=== PATIENT | female | born 1945 | race Caucasian/White ===

== ENCOUNTER → 2017-08-25 | Outpatient (CLI) | payer MEDICARE, OTHER | LOC: CVU 12:53 | PROVIDERS: ATTEND Internal Medicine Cardiovascular Disease | DX: Z02.9 Encounter for administrative examinations, unspecified (principal) ==

== ENCOUNTER → 2017-09-07 | Outpatient (CLI) | payer OTHER | END | disposition home or self-care (01) | LOC: CVU 09:21 | PROVIDERS: ATTEND Internal Medicine Cardiovascular Disease | DX: I35.2 Nonrheumatic aortic (valve) stenosis with insufficiency (principal) | CPT/HCPCS: 93306 ==

== ENCOUNTER 2017-10-22 12:10 | Day surgery (SDC) | payer OTHER ==
[~2017-10-22] VITALS: Ht 165.1 cm; Wt 63.2 kg
[2017-10-22] MEDS ORDERED: MAGN400T36 PO (13:00)
[2017-10-22] MEDS ORDERED: CALC-112 PO (13:00)
[2017-10-22 13:15] VITALS: BP 137/84
[2017-10-22 13:27] LABS: BASOPHILS # (AUTO) 0.01 x10^3/uL (0-0.1); BASOPHILS % (AUTO) 0 % (0-1); EOSINOPHILS % (AUTO) 0 % (1-7); LYMPHOCYTES # (AUTO) 0.62 x10^3/uL (1-3.4); LYMPHOCYTES % (AUTO) 11 % (22-44); MD NO; MEAN CORPUSCULAR HEMOGLOBIN 29.5 pg (27.0-34.8); MEAN CORPUSCULAR HGB CONC 32.8 g/dL (32.4-35.8); MEAN CORPUSCULAR VOLUME 89.7 fL (80-100); MEAN PLATELET VOLUME 7.4 fL (7.4-10.4); MONOCYTES # (AUTO) 0.05 x10^3/uL (0.2-0.8); MONOCYTES % (AUTO) 1 % (2-9); NEUTROPHILS # (AUTO) 4.96 x10^3/uL (1.8-6.8); NEUTROPHILS % (AUTO) 88 % (42-75); PLATELET COUNT 365 x10^3/uL (130-400); RED BLOOD COUNT 4.97 x10^6/uL (3.82-5.3); RED CELL DISTRIBUTION WIDTH 14.5 % (9.6-15.2)
[2017-10-22] MEDS ORDERED: ZOLPIDEM 5MG TABLET PO PRN (13:30)
[2017-10-22] MEDS ORDERED: ONDANSETRON 2MG/ML, 2ML IVPush PRN (13:30)
[2017-10-22] MEDS ORDERED: ACETAMINOPHEN 325 MG TABLET PO PRN (13:30)
[2017-10-22 13:45] LABS: ANION GAP 9 mmol/L (5-15); CALCIUM 9.4 mg/dL (8.5-10.1); CHLORIDE 107 mmol/L (98-107); CREATININE 1.13 mg/dL (0.55-1.02)
[2017-10-22] MEDS ORDERED: VERAPAMIL 2.5 MG/ML, 2ML ONE (14:19)
[2017-10-22] MEDS ORDERED: MIDAZOLAM 1 MG/ML, 5ML ONE (14:19)
[2017-10-22] MEDS ORDERED: HEPARIN 1,000 UNITS/ML, 10ML ONE (14:19)
[2017-10-22] MEDS ORDERED: FENTANYL PF 100 MCG/2ML ONE (14:19)
[2017-10-22] MEDS ORDERED: BIVALIRUDIN 250 MG ONE (14:19)
[2017-10-22] MEDS ORDERED: LIDOCAINE 2%, 2ML ONE (14:20)
== END 2017-10-22 19:30 | disposition home or self-care (01) ==
LOC: CACL 12:10 → 5SO 16:46 → CACL 19:30
PROVIDERS: ATTEND Internal Medicine Cardiovascular Disease
DX: I35.0 Nonrheumatic aortic (valve) stenosis (principal); E78.5 Hyperlipidemia, unspecified; Z88.1 Allergy status to other antibiotic agents; Z88.5 Allergy status to narcotic agent; Z88.8 Allergy status to other drugs, medicaments and biological substances; Z91.030 Bee allergy status
CPT/HCPCS: 36415; 80048; 85025; 93454; 99156; C1894; J1644; J2250; J3010; J3490; Q9967; J0583

== ENCOUNTER 2017-11-03 04:39 | Inpatient (IN) | payer OTHER ==
[2017-11-02 15:15] LABS: MICROSCOPIC INDICATED
[2017-11-02 15:23] LABS: BASOPHILS # (AUTO) 0.06 x10^3/uL (0-0.1); BASOPHILS % (AUTO) 1 % (0-1); EOSINOPHILS # (AUTO) 0.71 x10^3/uL (0-0.4); EOSINOPHILS % (AUTO) 8 % (1-7); LYMPHOCYTES # (AUTO) 2.11 x10^3/uL (1-3.4); LYMPHOCYTES % (AUTO) 23 % (22-44); MD NO; MEAN CORPUSCULAR HEMOGLOBIN 29.9 pg (27.0-34.8); MEAN CORPUSCULAR HGB CONC 33.3 g/dL (32.4-35.8); MEAN CORPUSCULAR VOLUME 89.7 fL (80-100); MEAN PLATELET VOLUME 7.3 fL (7.4-10.4); MONOCYTES # (AUTO) 0.45 x10^3/uL (0.2-0.8); MONOCYTES % (AUTO) 5 % (2-9); NEUTROPHILS # (AUTO) 5.93 x10^3/uL (1.8-6.8); NEUTROPHILS % (AUTO) 64 % (42-75); PLATELET COUNT 316 x10^3/uL (130-400); RED BLOOD COUNT 4.75 x10^6/uL (3.82-5.3); RED CELL DISTRIBUTION WIDTH 14.6 % (9.6-15.2)
[2017-11-02 15:30] LABS: ALANINE AMINOTRANSFERASE 32 U/L (12-78); ALBUMIN 3.8 g/dL (3.4-5.0); ANION GAP 7 mmol/L (5-15); CALCIUM 8.9 mg/dL (8.5-10.1); CHLORIDE 104 mmol/L (98-107); CREATININE 1.04 mg/dL (0.55-1.02)
[2017-11-02 15:32] LABS: ALKALINE PHOSPHATASE 74 U/L (45-117); BILIRUBIN,TOTAL 0.9 mg/dL (0.2-1.0); TOTAL PROTEIN 7.6 g/dL (6.4-8.2)
[2017-11-02 15:42] LABS: INTERNATIONAL NORMALIZED RATIO 0.94 (0.93-1.1); PROTHROMBIN TIME 9.8 Seconds (9.6-11.5)
[2017-11-02 16:09] LABS: HEMOGLOBIN A1C 5.3 % (4.2-6.3)
[~2017-11-03] VITALS: Ht 165.1 cm; Wt 70.5 kg
[~2017-11-03 04:39] MED LIST: ALPR0.25 PO; CALC-112 PO; CALCIUM PO; DIPH25CA61 PO; MAGN400T36 PO; MAGNESIUM PO; VITA1TAB19 PO
[2017-11-03] MEDS ORDERED: ALBUMIN HUMAN 5% 500 ML IV PRN (05:00)
[2017-11-03 05:06] VITALS: BP_SYST 130; BP_SYST 133; BP_DIAS 83; BP_DIAS 88
[2017-11-03] MEDS: MUPIROCIN OINT 2%, 22GM TP SCH ×2 (05:49→21:00)
[2017-11-03] MEDS: SODIUM CHLORIDE FLUSH 10ML SYR IVF SCH ×3 (05:54→21:37)
[2017-11-03] MEDS ORDERED: INSULIN LISPRO 100 UNITS/ML, PEN SQ-INSULIN SCH (06:00)
[2017-11-03] MEDS ORDERED: CHLORHEXIDINE 15 ML BOTTLE MM SCH (06:00)
[2017-11-03] MEDS ORDERED: FENTANYL PF 250 MCG/5ML ONE ×4 (06:17→06:18)
[2017-11-03] MEDS ORDERED: MIDAZOLAM 10MG/2 ML ONE (06:17)
[2017-11-03] MEDS ORDERED: ROCURONIUM 10MG/ML,5ML ONE ×3 (06:18)
[2017-11-03] MEDS ORDERED: CALCIUM CHLORIDE 10%, 10ML SYR ONE (06:18)
[2017-11-03] MEDS ORDERED: EPINEPHRINE 1 MG/ML, 1ML ONE (06:18)
[2017-11-03] MEDS ORDERED: AMINOCAPROIC ACID 250 MG/ML, 20ML ONE ×2 (06:18)
[2017-11-03] MEDS ORDERED: PROPOFOL 10 MG/ML, 20ML ONE (06:18)
[2017-11-03] MEDS ORDERED: methylPREDNISolone SOD SUCC 125 MG/2 ML ONE (07:10)
[2017-11-03] MEDS ORDERED: MANNITOL PMX 20% 500 ML IVPB PRN (07:30)
[2017-11-03] MEDS ORDERED: PHENYLEPHRINE 10 MG in SODIUM CHLORIDE 0.9% 249 ML IV PRN ×2 (07:30→10:32)
[2017-11-03] MEDS ORDERED: DEXMEDETOMIDINE 200 MCG in SODIUM CHLORIDE 0.9% 48 ML IV SCH (07:30)
[2017-11-03] MEDS ORDERED: REGULAR INSULIN 62.5 UNITS in SODIUM CHLORIDE 0.9% 249.375 ML IV PRN ×2 (07:30→10:32)
[2017-11-03] MEDS ORDERED: POTASSIUM CHLORIDE 80 MEQ, SODIUM BICARBONATE 8.4% 10 MEQ, MAGNESIUM SULFATE 0.5 GM, LI... IV PRN (07:30)
[2017-11-03] MEDS ORDERED: EPINEPHRINE 2 MG in SODIUM CHLORIDE 0.9% 248 ML IV SCH (07:30)
[2017-11-03] MEDS ORDERED: CEFUROXIME 1.5 GM in SODIUM CHLORIDE 0.9% 50 ML IVPB PRN (07:30)
[2017-11-03] MEDS ORDERED: VANCOMYCIN 1,000 MG in SODIUM CHLORIDE 0.9% 100 ML IV PRN (07:30)
[2017-11-03] MEDS: DOCUSATE 100 MG CAPSULE PO SCH ×2 (09:00→21:00)
[2017-11-03] MEDS ORDERED: DEXMEDETOMIDINE 200 MCG in SODIUM CHLORIDE 0.9% 48 ML IV PRN (10:32)
[2017-11-03] MEDS ORDERED: VASOPRESSIN 50 UNIT in SODIUM CHLORIDE 0.9% 250 ML IV PRN (10:32)
[2017-11-03] MEDS ORDERED: SODIUM CHLORIDE 0.9% 1,000 ML IV PRN (10:32)
[2017-11-03] MEDS ORDERED: NITROGLYCERIN/D5W PMX 250 ML IV PRN (10:32)
[2017-11-03] MEDS ORDERED: DOBUTAMINE 250 MG in SODIUM CHLORIDE 0.9% 230 ML IV PRN (10:32)
[2017-11-03] MEDS ORDERED: HEPARIN 1,000 UNITS/ML, 30ML ONE (10:34)
[2017-11-03] MEDS ORDERED: SODIUM BICARBONATE 1 MEQ/ML, 50ML VIAL ONE (10:34)
[2017-11-03] MEDS ORDERED: LIDOCAINE 2% 100MG/5ML SYRINGE ONE (10:34)
[2017-11-03] MEDS ORDERED: ALBUMIN HUMAN 25% 50 ML ONE (10:35)
[2017-11-03] MEDS ORDERED: morphine SULFATE 10 MG/ML, 1ML IVPush PRN (11:00)
[2017-11-03] MEDS ORDERED: ACETAMINOPHEN 650 MG SUPP PR PRN (11:00)
[2017-11-03] MEDS ORDERED: HYDROcodone/APAP 10/325 MG TABLET PO PRN (11:00)
[2017-11-03] MEDS ORDERED: EPINEPHRINE 2 MG in SODIUM CHLORIDE 0.9% 248 ML IV PRN (11:00)
[2017-11-03] MEDS ORDERED: BISACODYL 10 MG SUPP PR PRN (11:00)
[2017-11-03] MEDS ORDERED: DEXTROSE 4 GM TAB.CHEW PO PRN (11:00)
[2017-11-03] MEDS ORDERED: MIDAZOLAM 1 MG/ML, 5ML IVPush PRN (11:00)
[2017-11-03] MEDS ORDERED: ACETAMINOPHEN 325 MG TABLET PO PRN (11:00)
[2017-11-03] MEDS ORDERED: CEFUROXIME 1.5 GM in SODIUM CHLORIDE 0.9% 50 ML IVPB SCH (11:00)
[2017-11-03] MEDS ORDERED: DEXTROSE 50%, 50ML SYRINGE IVPush PRN (11:00)
[2017-11-03] MEDS ORDERED: SODIUM BICARB 8.4%, 50ML SYRINGE IV PRN (11:00)
[2017-11-03] MEDS: INSULIN LISPRO 100 UNITS/ML, PEN SQ-INSULIN SCH ×3 (11:00→21:00)
[2017-11-03] MEDS ORDERED: INSULIN REGULAR 100 UNITS/ML, 3ML VIAL IVPush PRN (11:00)
[2017-11-03] MEDS ORDERED: ONDANSETRON 2MG/ML, 2ML IVPush PRN (11:00)
[2017-11-03] MEDS ORDERED: BISACODYL 5 MG EC TABLET PO PRN (11:00)
[2017-11-03] MEDS: KSCALE TO 4.5 IV SCH ×3 (11:00→23:00)
[2017-11-03] MEDS ORDERED: GLUCAGON 1 MG IM PRN (11:00)
[2017-11-03 11:03] LABS: GLUCOSE BY BLOOD GAS ANALYZER 190 mg/dL (70-110); HEMOGLOBIN BY BLOOD GAS ANALYZ 10.9 g/dL (14.0-18.0); POTASSIUM BY BLOOD GAS ANALYZR 2.7 mmol/L (3.6-5.5)
[2017-11-03 11:29] LABS: INTERNATIONAL NORMALIZED RATIO 1.42 (0.93-1.1); PROTHROMBIN TIME 14.7 Seconds (9.6-11.5)
[2017-11-03] MEDS ORDERED: POTASSIUM CHLORIDE 40 MEQ in SODIUM CHLORIDE 0.9% 100 ML IV ONE (12:00)
[2017-11-03 13:24] VITALS: BP 124/40
[2017-11-03 13:58] VITALS: BP 116/38
[2017-11-03] MEDS ORDERED: CALCIUM CHLORIDE 13.6 MEQ in SODIUM CHLORIDE 0.9% 100 ML IV ONE (14:00)
[2017-11-03 14:20] LABS: INTERNATIONAL NORMALIZED RATIO 1.25 (0.93-1.1); PROTHROMBIN TIME 12.9 Seconds (9.6-11.5)
[2017-11-03 14:42] VITALS: BP 119/35
[2017-11-03] MEDS ORDERED: NOVOSEVEN RT (FACTOR VIIA) RECOMB 1,000 MCG IVPush ONE (15:00)
[2017-11-03] MEDS: PROCHLORPERAZINE 5 MG/ML, 2ML IVPush PRN ×2 (15:34→22:45)
[2017-11-03] MEDS ORDERED: ALBUMIN HUMAN 5% 500 ML IV ONE (16:00)
[2017-11-03] MEDS: MAGNESIUM SULFATE 1 GM in SODIUM CHLORIDE 0.9% 50 ML IVPB SCH (16:07)
[2017-11-03 16:10] VITALS: BP 106/27
[2017-11-03] MEDS: HYDROcodone/APAP 5/325 TABLET PO PRN (17:54)
[2017-11-03] MEDS: VANCOMYCIN 900 MG in SODIUM CHLORIDE 0.9% 100 ML IVPB SCH (17:55)
[2017-11-03] MEDS: ONDANSETRON ODT 4 MG PO PRN (18:22)
[2017-11-03] MEDS ORDERED: MORPHINE SULFATE 4 MG/ML, 1ML ONE (19:32)
[2017-11-03] MEDS: LACTATED RINGERS 1,000 ML IV PRN (19:56)
[2017-11-03] MEDS: CEFAZOLIN PMX 1GM/50ML 50 ML IVPB SCH (19:56)
[2017-11-03] MEDS ORDERED: PROMETHAZINE 25 MG/ML, 1ML IM ONE (20:00)
[2017-11-03] MEDS ORDERED: DIPHENHYDRAMINE 50 MG/ML, 1ML IVPush ONE (20:00)
[2017-11-03] MEDS: SCOPOLAMINE PATCH, 1.5MG PATCH.TD72 TD SCH (20:08)
[2017-11-03] MEDS: MUPIROCIN OINT 2%, 22GM NAS SCH (21:36)
[2017-11-03] MEDS: OXYcodone IR 5MG TABLET PO PRN (21:36)
[2017-11-04] MEDS: OXYcodone IR 5MG TABLET PO PRN ×7 (01:45→20:53)
[2017-11-04] MEDS: LACTATED RINGERS 1,000 ML IV PRN (02:32)
[2017-11-04] MEDS: CEFAZOLIN PMX 1GM/50ML 50 ML IVPB SCH ×2 (03:30→11:27)
[2017-11-04 03:58] LABS: MEAN CORPUSCULAR HEMOGLOBIN 30.6 pg (27.0-34.8); MEAN CORPUSCULAR HGB CONC 34.2 g/dL (32.4-35.8); MEAN CORPUSCULAR VOLUME 89.3 fL (80-100); MEAN PLATELET VOLUME 7.2 fL (7.4-10.4); PLATELET COUNT 97 x10^3/uL (130-400); RED BLOOD COUNT 2.85 x10^6/uL (3.82-5.3)
[2017-11-04 04:02] LABS: INTERNATIONAL NORMALIZED RATIO 0.94 (0.93-1.1); PROTHROMBIN TIME 9.8 Seconds (9.6-11.5)
[2017-11-04 04:05] LABS: ALBUMIN 3.2 g/dL (3.4-5.0); ANION GAP 4 mmol/L (5-15); CHLORIDE 116 mmol/L (98-107); CREATININE 0.81 mg/dL (0.55-1.02)
[2017-11-04 04:29] LABS: BASOPHILS % (AUTO) 0 % (0-1); EOSINOPHILS % (AUTO) 0 % (1-7); LYMPHOCYTES # (AUTO) 0.45 x10^3/uL (1-3.4); LYMPHOCYTES % (AUTO) 5 % (22-44); MD SCAN; MONOCYTES # (AUTO) 0.78 x10^3/uL (0.2-0.8); MONOCYTES % (AUTO) 8 % (2-9); NEUTROPHILS # (AUTO) 8.79 x10^3/uL (1.8-6.8); NEUTROPHILS % (AUTO) 88 % (42-75)
[2017-11-04 05:00] VITALS: BP 126/46
[2017-11-04] MEDS: KSCALE TO 4.5 IV SCH (05:00)
[2017-11-04] MEDS: VANCOMYCIN 900 MG in SODIUM CHLORIDE 0.9% 100 ML IVPB SCH (05:24)
[2017-11-04] MEDS: ONDANSETRON ODT 4 MG PO PRN ×3 (06:49→20:53)
[2017-11-04] MEDS ORDERED: MAGNESIUM HYDROXIDE 8%, 30ML UDC PO PRN (08:00)
[2017-11-04] MEDS: PROCHLORPERAZINE 5 MG/ML, 2ML IVPush PRN (08:38)
[2017-11-04] MEDS: ASPIRIN 81 MG TABLET EC PO SCH (08:45)
[2017-11-04] MEDS: FUROSEMIDE 20 MG/2 ML IV SCH ×2 (08:45→17:27)
[2017-11-04] MEDS: POTASSIUM CHLORIDE 10 MEQ TABLET.ER PO SCH ×2 (08:46→17:27)
[2017-11-04] MEDS: WARFARIN BIOPROSTHETIC VALVE PROTOCOL 2-3 XX SCH (08:46)
[2017-11-04] MEDS: DOCUSATE 100 MG CAPSULE PO SCH ×2 (08:46→20:54)
[2017-11-04] MEDS: MAGNESIUM OXIDE 400 MG TABLET PO SCH ×2 (08:46→20:54)
[2017-11-04] MEDS: CALCIUM CARBONATE 500 MG TAB.CHEW PO SCH ×2 (08:46→20:54)
[2017-11-04] MEDS: MUPIROCIN OINT 2%, 22GM NAS SCH ×2 (08:47→20:55)
[2017-11-04] MEDS: MUPIROCIN OINT 2%, 22GM TP SCH ×2 (08:47→20:59)
[2017-11-04] MEDS: INSULIN LISPRO 100 UNITS/ML, PEN SQ-INSULIN SCH ×4 (08:47→20:59)
[2017-11-04] MEDS: SODIUM CHLORIDE FLUSH 10ML SYR IVF SCH ×5 (09:00→20:56)
[2017-11-04] MEDS: CHLORHEXIDINE 15 ML BOTTLE MM SCH ×2 (11:27→20:55)
[2017-11-04] MEDS: MAGNESIUM SULFATE 1 GM in SODIUM CHLORIDE 0.9% 50 ML IVPB SCH (14:12)
[2017-11-04 15:57] VITALS: BP 106/56
[2017-11-04 17:19] VITALS: BP 111/61
[2017-11-04] MEDS ORDERED: WARFARIN 5 MG TABLET PO-COUM ONE (18:00)
[2017-11-04 18:41] VITALS: BP 115/63
[2017-11-04] MEDS: DIPHENHYDRAMINE 25 MG CAPSULE PO SCH (20:55)
[2017-11-05] VITALS (8 sets, daily range): BP systolic 93–138; BP diastolic 57–70
[2017-11-05] MEDS: OXYcodone IR 5MG TABLET PO PRN ×2 (00:35→04:44)
[2017-11-05 05:01] LABS: INTERNATIONAL NORMALIZED RATIO 0.99 (0.93-1.1); PROTHROMBIN TIME 10.3 Seconds (9.6-11.5)
[2017-11-05 05:06] LABS: ANION GAP 6 mmol/L (5-15); CALCIUM 8.3 mg/dL (8.5-10.1); CHLORIDE 104 mmol/L (98-107); CREATININE 1.05 mg/dL (0.55-1.02)
[2017-11-05 05:11] LABS: MEAN CORPUSCULAR HEMOGLOBIN 30.2 pg (27.0-34.8); MEAN CORPUSCULAR HGB CONC 34.1 g/dL (32.4-35.8); MEAN CORPUSCULAR VOLUME 88.7 fL (80-100); MEAN PLATELET VOLUME 7.9 fL (7.4-10.4); PLATELET COUNT 94 x10^3/uL (130-400); RED BLOOD COUNT 2.69 x10^6/uL (3.82-5.3); RED CELL DISTRIBUTION WIDTH 15.5 % (9.6-15.2)
[2017-11-05 05:55] LABS: BASOPHILS # (AUTO) 0.02 x10^3/uL (0-0.1); BASOPHILS % (AUTO) 0 % (0-1); EOSINOPHILS # (AUTO) 0.02 x10^3/uL (0-0.4); EOSINOPHILS % (AUTO) 0 % (1-7); LYMPHOCYTES # (AUTO) 1.28 x10^3/uL (1-3.4); LYMPHOCYTES % (AUTO) 10 % (22-44); MD SCAN; MONOCYTES # (AUTO) 1.06 x10^3/uL (0.2-0.8); MONOCYTES % (AUTO) 8 % (2-9); NEUTROPHILS # (AUTO) 10.62 x10^3/uL (1.8-6.8); NEUTROPHILS % (AUTO) 82 % (42-75)
[2017-11-05] MEDS: INSULIN LISPRO 100 UNITS/ML, PEN SQ-INSULIN SCH ×4 (07:00→20:28)
[2017-11-05] MEDS: ONDANSETRON ODT 4 MG PO PRN (08:15)
[2017-11-05] MEDS: SODIUM CHLORIDE FLUSH 10ML SYR IVF SCH ×6 (08:18→20:20)
[2017-11-05] MEDS: MUPIROCIN OINT 2%, 22GM TP SCH ×2 (08:22→20:22)
[2017-11-05] MEDS: MUPIROCIN OINT 2%, 22GM NAS SCH ×2 (08:22→20:21)
[2017-11-05] MEDS: DOCUSATE 100 MG CAPSULE PO SCH ×2 (08:24→20:21)
[2017-11-05] MEDS: CALCIUM CARBONATE 500 MG TAB.CHEW PO SCH ×2 (08:24→20:20)
[2017-11-05] MEDS: MAGNESIUM OXIDE 400 MG TABLET PO SCH ×2 (08:24→20:21)
[2017-11-05] MEDS: HYDROcodone/APAP 5/325 TABLET PO PRN ×3 (08:37→20:20)
[2017-11-05] MEDS: WARFARIN BIOPROSTHETIC VALVE PROTOCOL 2-3 XX SCH (09:00)
[2017-11-05] MEDS: FUROSEMIDE 20 MG/2 ML IV SCH ×2 (09:31→17:00)
[2017-11-05] MEDS: POTASSIUM CHLORIDE 10 MEQ TABLET.ER PO SCH ×2 (09:33→17:00)
[2017-11-05] MEDS: ASPIRIN 81 MG TABLET EC PO SCH (09:33)
[2017-11-05] MEDS: CHLORHEXIDINE 15 ML BOTTLE MM SCH ×2 (12:17→20:22)
[2017-11-05] MEDS: MAGNESIUM SULFATE 1 GM in SODIUM CHLORIDE 0.9% 50 ML IVPB SCH (14:07)
[2017-11-05] MEDS ORDERED: WARFARIN 5 MG TABLET PO-COUM SCH (18:00)
[2017-11-05] MEDS ORDERED: DIPHENHYDRAMINE 50 MG/ML, 1ML IVPush ONE (19:00)
[2017-11-05] MEDS ORDERED: AMIODARONE 150 MG in DEXTROSE 5% 100 ML IV ONE (19:00)
[2017-11-05] MEDS: AMIODARONE 450 MG in DEXTROSE 5% 241 ML IV PRN (19:28)
[2017-11-05] MEDS: FILTER 0.22 MICRON IV PRN (19:30)
[2017-11-05] MEDS: DIPHENHYDRAMINE 25 MG CAPSULE PO SCH (20:01)
[2017-11-06] MEDS: HYDROcodone/APAP 5/325 TABLET PO PRN ×5 (01:20→21:50)
[2017-11-06 01:21] VITALS: BP 110/69
[2017-11-06] MEDS: AMIODARONE 450 MG in DEXTROSE 5% 241 ML IV PRN ×2 (03:08→20:18)
[2017-11-06 05:09] LABS: BASOPHILS # (AUTO) 0.08 x10^3/uL (0-0.1); BASOPHILS % (AUTO) 1 % (0-1); EOSINOPHILS # (AUTO) 0.24 x10^3/uL (0-0.4); EOSINOPHILS % (AUTO) 2 % (1-7); LYMPHOCYTES # (AUTO) 1.28 x10^3/uL (1-3.4); LYMPHOCYTES % (AUTO) 10 % (22-44); MD NO; MEAN CORPUSCULAR HEMOGLOBIN 30.4 pg (27.0-34.8); MEAN CORPUSCULAR HGB CONC 33.7 g/dL (32.4-35.8); MEAN CORPUSCULAR VOLUME 90.1 fL (80-100); MEAN PLATELET VOLUME 8.2 fL (7.4-10.4); MONOCYTES # (AUTO) 0.81 x10^3/uL (0.2-0.8); MONOCYTES % (AUTO) 7 % (2-9); NEUTROPHILS # (AUTO) 9.98 x10^3/uL (1.8-6.8); NEUTROPHILS % (AUTO) 81 % (42-75); PLATELET COUNT 106 x10^3/uL (130-400); RED BLOOD COUNT 2.75 x10^6/uL (3.82-5.3); RED CELL DISTRIBUTION WIDTH 14.8 % (9.6-15.2)
[2017-11-06 05:16] LABS: INTERNATIONAL NORMALIZED RATIO 1.15 (0.93-1.1); PROTHROMBIN TIME 11.9 Seconds (9.6-11.5)
[2017-11-06 05:22] LABS: ANION GAP 4 mmol/L (5-15); CALCIUM 8.1 mg/dL (8.5-10.1); CHLORIDE 98 mmol/L (98-107)
[2017-11-06 05:23] LABS: CREATININE 0.94 mg/dL (0.55-1.02)
[2017-11-06] MEDS: INSULIN LISPRO 100 UNITS/ML, PEN SQ-INSULIN SCH ×3 (07:00→16:00)
[2017-11-06] MEDS ORDERED: AMIODARONE 150 MG in DEXTROSE 5% 100 ML IV ONE (08:00)
[2017-11-06 08:25] VITALS: BP 90/60
[2017-11-06] MEDS: DOCUSATE 100 MG CAPSULE PO SCH ×2 (08:36→21:00)
[2017-11-06] MEDS: MUPIROCIN OINT 2%, 22GM NAS SCH ×2 (08:36→21:50)
[2017-11-06] MEDS: POTASSIUM CHLORIDE 10 MEQ TABLET.ER PO SCH ×2 (08:37→18:40)
[2017-11-06] MEDS: FUROSEMIDE 20 MG/2 ML IV SCH ×2 (08:37→18:40)
[2017-11-06] MEDS: CALCIUM CARBONATE 500 MG TAB.CHEW PO SCH ×2 (08:37→21:50)
[2017-11-06] MEDS: ASPIRIN 81 MG TABLET EC PO SCH (08:37)
[2017-11-06] MEDS: MAGNESIUM OXIDE 400 MG TABLET PO SCH ×2 (08:37→21:50)
[2017-11-06] MEDS: SODIUM CHLORIDE FLUSH 10ML SYR IVF SCH ×4 (08:37→21:50)
[2017-11-06] MEDS: WARFARIN BIOPROSTHETIC VALVE PROTOCOL 2-3 XX SCH (08:38)
[2017-11-06] MEDS: MUPIROCIN OINT 2%, 22GM TP SCH (08:38)
[2017-11-06] MEDS: ONDANSETRON ODT 4 MG PO PRN ×2 (11:08→21:50)
[2017-11-06 14:30] VITALS: BP 99/62
[2017-11-06] MEDS ORDERED: WARFARIN 7.5 MG TABLET PO-COUM SCH (18:00)
[2017-11-06 18:32] VITALS: BP 103/59
[2017-11-06] MEDS: FILTER 0.22 MICRON IV PRN (20:18)
[2017-11-06] MEDS: DIPHENHYDRAMINE 25 MG CAPSULE PO SCH (21:00)
[2017-11-06] MEDS: SCOPOLAMINE PATCH, 1.5MG PATCH.TD72 TD SCH (21:50)
[2017-11-07 01:09] VITALS: BP 109/60
[2017-11-07] MEDS: HYDROcodone/APAP 5/325 TABLET PO PRN ×4 (02:15→17:29)
[2017-11-07 06:08] LABS: INTERNATIONAL NORMALIZED RATIO 1.43 (0.93-1.1); PROTHROMBIN TIME 14.8 Seconds (9.6-11.5)
[2017-11-07 06:12] LABS: ANION GAP 6 mmol/L (5-15); BASOPHILS # (AUTO) 0.03 x10^3/uL (0-0.1); BASOPHILS % (AUTO) 0 % (0-1); CALCIUM 7.9 mg/dL (8.5-10.1); CHLORIDE 93 mmol/L (98-107); CREATININE 0.94 mg/dL (0.55-1.02); EOSINOPHILS # (AUTO) 0.64 x10^3/uL (0-0.4); EOSINOPHILS % (AUTO) 6 % (1-7); LYMPHOCYTES # (AUTO) 1.42 x10^3/uL (1-3.4); LYMPHOCYTES % (AUTO) 14 % (22-44); MD NO; MEAN CORPUSCULAR HEMOGLOBIN 30.5 pg (27.0-34.8); MEAN CORPUSCULAR HGB CONC 33.6 g/dL (32.4-35.8); MEAN CORPUSCULAR VOLUME 90.7 fL (80-100); MEAN PLATELET VOLUME 8.1 fL (7.4-10.4); MONOCYTES # (AUTO) 0.71 x10^3/uL (0.2-0.8); MONOCYTES % (AUTO) 7 % (2-9); NEUTROPHILS # (AUTO) 7.32 x10^3/uL (1.8-6.8); NEUTROPHILS % (AUTO) 72 % (42-75); PLATELET COUNT 136 x10^3/uL (130-400); RED BLOOD COUNT 2.68 x10^6/uL (3.82-5.3); RED CELL DISTRIBUTION WIDTH 14.7 % (9.6-15.2)
[2017-11-07 06:30] VITALS: BP 105/69
[2017-11-07] MEDS: ONDANSETRON ODT 4 MG PO PRN ×2 (06:33→17:29)
[2017-11-07] MEDS ORDERED: POTASSIUM CHLORIDE 20 MEQ TAB.ER.PRT PO ONE (07:30)
[2017-11-07] MEDS: POTASSIUM CHLORIDE 10 MEQ TABLET.ER PO SCH ×2 (08:00→17:29)
[2017-11-07] MEDS: MUPIROCIN OINT 2%, 22GM NAS SCH ×2 (09:00→19:52)
[2017-11-07] MEDS: WARFARIN BIOPROSTHETIC VALVE PROTOCOL 2-3 XX SCH (09:00)
[2017-11-07] MEDS: DOCUSATE 100 MG CAPSULE PO SCH ×2 (09:00→19:28)
[2017-11-07] MEDS: FUROSEMIDE 20 MG/2 ML IV SCH ×2 (09:51→17:29)
[2017-11-07] MEDS: AMIODARONE 200 MG TABLET PO SCH ×2 (09:51→19:53)
[2017-11-07] MEDS: CALCIUM CARBONATE 500 MG TAB.CHEW PO SCH ×2 (09:51→19:54)
[2017-11-07] MEDS: ASPIRIN 81 MG TABLET EC PO SCH (09:51)
[2017-11-07] MEDS: MAGNESIUM OXIDE 400 MG TABLET PO SCH ×2 (09:52→19:53)
[2017-11-07] MEDS: SODIUM CHLORIDE FLUSH 10ML SYR IVF SCH ×2 (09:53→19:52)
[2017-11-07 14:44] VITALS: BP 102/53
[2017-11-07] MEDS ORDERED: WARFARIN 5 MG TABLET PO-COUM ONE (17:21)
[2017-11-07] MEDS ORDERED: WARFARIN 10 MG TABLET PO-COUM SCH (18:00)
[2017-11-07 18:31] VITALS: BP 98/51
[2017-11-07] MEDS: DIPHENHYDRAMINE 25 MG CAPSULE PO SCH (19:52)
[2017-11-08 02:20] VITALS: BP 115/60
[2017-11-08] MEDS: HYDROcodone/APAP 5/325 TABLET PO PRN ×4 (04:38→20:21)
[2017-11-08 05:30] LABS: INTERNATIONAL NORMALIZED RATIO 2.54 (0.93-1.1); PROTHROMBIN TIME 25.9 Seconds (9.6-11.5)
[2017-11-08 05:38] LABS: ANION GAP 5 mmol/L (5-15); CALCIUM 7.8 mg/dL (8.5-10.1); CHLORIDE 93 mmol/L (98-107)
[2017-11-08 05:52] LABS: BASOPHILS # (AUTO) 0.04 x10^3/uL (0-0.1); BASOPHILS % (AUTO) 0 % (0-1); EOSINOPHILS # (AUTO) 0.68 x10^3/uL (0-0.4); EOSINOPHILS % (AUTO) 8 % (1-7); LYMPHOCYTES # (AUTO) 1.38 x10^3/uL (1-3.4); LYMPHOCYTES % (AUTO) 17 % (22-44); MD NO; MEAN CORPUSCULAR HGB CONC 33.6 g/dL (32.4-35.8); MEAN CORPUSCULAR VOLUME 89.5 fL (80-100); MEAN PLATELET VOLUME 7.6 fL (7.4-10.4); MONOCYTES # (AUTO) 0.73 x10^3/uL (0.2-0.8); MONOCYTES % (AUTO) 9 % (2-9); NEUTROPHILS % (AUTO) 65 % (42-75); PLATELET COUNT 169 x10^3/uL (130-400); RED BLOOD COUNT 2.82 x10^6/uL (3.82-5.3); RED CELL DISTRIBUTION WIDTH 14.5 % (9.6-15.2)
[2017-11-08 06:41] VITALS: BP 105/63
[2017-11-08] MEDS ORDERED: ASPI-621 PO (07:24)
[2017-11-08] MEDS ORDERED: AMIO200T42 PO (07:24)
[2017-11-08] MEDS ORDERED: WARF5TAB PO-COUM (07:24)
[2017-11-08] MEDS ORDERED: POTA20TA6 PO (07:24)
[2017-11-08] MEDS ORDERED: FURO40TA6 PO (07:24)
[2017-11-08] MEDS ORDERED: DOCU-131 PO (07:24)
[2017-11-08] MEDS ORDERED: POTASSIUM CHLORIDE 20 MEQ TAB.ER.PRT PO ONE (07:30)
[2017-11-08] MEDS ORDERED: HYDR-3237 PO (08:59)
[2017-11-08] MEDS: WARFARIN BIOPROSTHETIC VALVE PROTOCOL 2-3 XX SCH (09:00)
[2017-11-08] MEDS: MUPIROCIN OINT 2%, 22GM NAS SCH ×2 (09:06→20:50)
[2017-11-08] MEDS: POTASSIUM CHLORIDE 10 MEQ TABLET.ER PO SCH (09:08)
[2017-11-08] MEDS: MAGNESIUM OXIDE 400 MG TABLET PO SCH ×2 (09:08→20:21)
[2017-11-08] MEDS: AMIODARONE 200 MG TABLET PO SCH ×2 (09:08→20:21)
[2017-11-08] MEDS: ASPIRIN 81 MG TABLET EC PO SCH (09:08)
[2017-11-08] MEDS: CALCIUM CARBONATE 500 MG TAB.CHEW PO SCH ×2 (09:08→20:21)
[2017-11-08] MEDS: DOCUSATE 100 MG CAPSULE PO SCH ×2 (09:08→20:21)
[2017-11-08] MEDS: SODIUM CHLORIDE FLUSH 10ML SYR IVF SCH ×2 (09:09→20:27)
[2017-11-08] MEDS: FUROSEMIDE 20 MG/2 ML IV SCH (09:09)
[2017-11-08 12:37] VITALS: BP 97/56
[2017-11-08] MEDS ORDERED: WARFARIN 5 MG TABLET PO-COUM SCH (18:00)
[2017-11-08 19:07] VITALS: BP 87/46
[2017-11-08 19:24] VITALS: BP 111/56
[2017-11-08] MEDS: DIPHENHYDRAMINE 25 MG CAPSULE PO SCH (20:21)
[2017-11-09 00:46] VITALS: BP 94/47
[2017-11-09] MEDS: HYDROcodone/APAP 5/325 TABLET PO PRN ×4 (01:35→17:11)
[2017-11-09 05:05] LABS: INTERNATIONAL NORMALIZED RATIO 3.93 (0.93-1.1); PROTHROMBIN TIME 39.8 Seconds (9.6-11.5)
[2017-11-09 05:11] LABS: ANION GAP 5 mmol/L (5-15); CALCIUM 8.4 mg/dL (8.5-10.1); CHLORIDE 95 mmol/L (98-107); CREATININE 0.97 mg/dL (0.55-1.02)
[2017-11-09 06:35] VITALS: BP 95/52
[2017-11-09] MEDS: WARFARIN BIOPROSTHETIC VALVE PROTOCOL 2-3 XX SCH (07:45)
[2017-11-09 07:58] VITALS: BP 108/63
[2017-11-09] MEDS: AMIODARONE 200 MG TABLET PO SCH (08:00)
[2017-11-09] MEDS ORDERED: POTASSIUM CHLORIDE 20 MEQ TAB.ER.PRT PO SCH (08:00)
[2017-11-09] MEDS ORDERED: HOLD COUMADIN MC PRN (08:00)
[2017-11-09] MEDS: DOCUSATE 100 MG CAPSULE PO SCH (08:00)
[2017-11-09] MEDS: MAGNESIUM OXIDE 400 MG TABLET PO SCH (08:00)
[2017-11-09] MEDS: ASPIRIN 81 MG TABLET EC PO SCH (08:00)
[2017-11-09] MEDS: CALCIUM CARBONATE 500 MG TAB.CHEW PO SCH (08:01)
[2017-11-09] MEDS: SODIUM CHLORIDE FLUSH 10ML SYR IVF SCH (08:01)
[2017-11-09] MEDS ORDERED: FUROSEMIDE 40 MG/4 ML IV SCH (09:00)
[2017-11-09 15:07] VITALS: BP 93/64
== END 2017-11-09 18:52 | disposition home or self-care (01) | DRG 219 ==
LOC: 5SO 04:39 → CSU 08:23 → 5SO 11-04 15:51
PROVIDERS: ADMIT Thoracic Surgery (Cardiothoracic Vascular Surgery); ATTEND Thoracic Surgery (Cardiothoracic Vascular Surgery)
PROC: 04Q00ZZ Repair Abdominal Aorta, Open Approach (ICD-10-PCS; 2017-11-03)
PROC: 5A1221Z Performance of Cardiac Output, Continuous (ICD-10-PCS; 2017-11-03)
PROC: B246ZZ4 Ultrasonography of Right and Left Heart, Transesophageal (ICD-10-PCS; 2017-11-03)
PROC: 02RF0KZ Replacement of Aortic Valve with Nonautologous Tissue Substitute, Open Approach (ICD-10-PCS; principal; 2017-11-03 07:30)
DX: I35.0 Nonrheumatic aortic (valve) stenosis (principal); I50.31 Acute diastolic (congestive) heart failure; I71.2 Thoracic aortic aneurysm, without rupture; I48.0 Paroxysmal atrial fibrillation; J93.83 Other pneumothorax; E78.5 Hyperlipidemia, unspecified; F41.9 Anxiety disorder, unspecified; I44.0 Atrioventricular block, first degree; I70.0 Atherosclerosis of aorta; Z86.79 Personal history of other diseases of the circulatory system
CPT/HCPCS: 36415; 36600; 71045; 71046; 80048; 80053; 81001; 82040; 82330; 82800; 82803; 82810; 82947; 82962; 83036; 83735; 84132; 84295; 85014; 85018; 85025; 85049; 85347; 85610; 85730; 86850; 86900; 86923; 87081; 88304; 88305; 93005; 93318; 93321; 93325; 93880; 94002; C1768; J0171; J0690; J0697; J1644; J1815; J1940; J2250; J2550; J2704; J3010; J3370; J3475; J3480; J3490; J7060; J7189; P9045; P9047; Q0162; C1751; C1760; J0282; J0780; J1200; J2370; J2930; J7050; J7120; P9012; P9016; P9017; P9035; Q0163

== ENCOUNTER 2017-11-15 18:45 | Inpatient (IN) | payer OTHER ==
[~2017-11-15] VITALS: Ht 165.1 cm; Wt 63.3 kg
[~2017-11-15 18:45] MED LIST changes: +AMIO200T42 PO; +ASPI-621 PO; +DOCU-131 PO; +FURO40TA6 PO; +HYDR-3237 PO; +POTA20TA6 PO; +WARF5TAB PO-COUM
[2017-11-15] MEDS ORDERED: SODIUM CHLORIDE FLUSH 10ML SYR IVF ONE (19:30)
[2017-11-15] MEDS ORDERED: AMIO200T42 PO (19:35)
[2017-11-15 19:37] LABS: BASOPHILS # (AUTO) 0.04 x10^3/uL (0-0.1); BASOPHILS % (AUTO) 0 % (0-1); EOSINOPHILS # (AUTO) 0.64 x10^3/uL (0-0.4); EOSINOPHILS % (AUTO) 6 % (1-7); LYMPHOCYTES # (AUTO) 1.39 x10^3/uL (1-3.4); LYMPHOCYTES % (AUTO) 12 % (22-44); MD NO; MEAN CORPUSCULAR HEMOGLOBIN 30.5 pg (27.0-34.8); MEAN CORPUSCULAR VOLUME 92.4 fL (80-100); MEAN PLATELET VOLUME 6.8 fL (7.4-10.4); MONOCYTES # (AUTO) 0.54 x10^3/uL (0.2-0.8); MONOCYTES % (AUTO) 5 % (2-9); NEUTROPHILS # (AUTO) 8.88 x10^3/uL (1.8-6.8); NEUTROPHILS % (AUTO) 77 % (42-75); PLATELET COUNT 502 x10^3/uL (130-400); RED BLOOD COUNT 3.55 x10^6/uL (3.82-5.3)
[2017-11-15 19:56] LABS: ALANINE AMINOTRANSFERASE 53 U/L (12-78); ALBUMIN 3.2 g/dL (3.4-5.0); ALKALINE PHOSPHATASE 94 U/L (45-117); ANION GAP 7 mmol/L (5-15); BILIRUBIN,TOTAL 0.9 mg/dL (0.2-1.0); CALCIUM 8.8 mg/dL (8.5-10.1); CHLORIDE 108 mmol/L (98-107); CREATININE 0.96 mg/dL (0.55-1.02)
[2017-11-15 20:32] LABS: INTERNATIONAL NORMALIZED RATIO 3.16 (0.93-1.1); PROTHROMBIN TIME 32.1 Seconds (9.6-11.5)
[2017-11-15] MEDS ORDERED: SODIUM CHLORIDE FLUSH 10ML SYR IVF PRN (21:00)
[2017-11-15] MEDS ORDERED: LABETALOL 5MG/ML, 20ML IVPush PRN (21:30)
[2017-11-15] MEDS ORDERED: DOCUSATE 100 MG CAPSULE PO PRN (21:30)
[2017-11-15] MEDS ORDERED: ENALAPRILAT 1.25 MG/ML, 2ML IVPush PRN (21:30)
[2017-11-15] MEDS ORDERED: OXYcodone IR 5MG TABLET PO PRN (21:30)
[2017-11-15] MEDS ORDERED: ACETAMINOPHEN 325 MG TABLET PO PRN (21:30)
[2017-11-15 21:35] VITALS: BP 115/67
[2017-11-15] MEDS: AMIODARONE 200 MG TABLET PO SCH (22:05)
[2017-11-15] MEDS: FUROSEMIDE 40 MG/4 ML IV SCH (22:05)
[2017-11-16 00:51] VITALS: BP_SYST 105; BP_SYST 145; BP_DIAS 68; BP_DIAS 72
[2017-11-16 04:59] LABS: INTERNATIONAL NORMALIZED RATIO 2.99 (0.93-1.1); PROTHROMBIN TIME 30.4 Seconds (9.6-11.5)
[2017-11-16 05:05] LABS: CHLORIDE 105 mmol/L (98-107)
[2017-11-16 05:09] LABS: ALANINE AMINOTRANSFERASE 47 U/L (12-78); ALKALINE PHOSPHATASE 90 U/L (45-117); ANION GAP 8 mmol/L (5-15); BILIRUBIN,TOTAL 0.8 mg/dL (0.2-1.0); CALCIUM 8.3 mg/dL (8.5-10.1); CREATININE 0.96 mg/dL (0.55-1.02); TOTAL PROTEIN 6.4 g/dL (6.4-8.2)
[2017-11-16 06:36] VITALS: BP 119/63
[2017-11-16] MEDS: FUROSEMIDE 40 MG/4 ML IV SCH (08:10)
[2017-11-16] MEDS: SENNA/DOCUSATE TABLET PO SCH (08:10)
[2017-11-16] MEDS: POTASSIUM CHLORIDE 20 MEQ TAB.ER.PRT PO SCH (08:10)
[2017-11-16] MEDS: ASPIRIN 81 MG TABLET EC PO SCH (08:12)
[2017-11-16] MEDS: AMIODARONE 200 MG TABLET PO SCH ×2 (08:12→19:58)
[2017-11-16] MEDS ORDERED: CALCIUM CARBONATE 500 MG TAB.CHEW PO ONE (10:30)
[2017-11-16 13:23] VITALS: BP 110/61
[2017-11-16] MEDS ORDERED: ONDANSETRON ODT 4 MG PO PRN (14:30)
[2017-11-16 16:40] VITALS: BP 112/65
[2017-11-16] MEDS: METOPROLOL TARTRATE 25 MG TABLET PO SCH (17:55)
[2017-11-16] MEDS ORDERED: WARFARIN 2 MG TABLET PO-COUM ONE (18:00)
[2017-11-16] MEDS ORDERED: WARFARIN 5 MG TABLET PO-COUM SCH (18:00)
[2017-11-16 19:57] VITALS: BP 97/55
[2017-11-17 03:13] VITALS: BP 111/55
[2017-11-17 06:22] VITALS: BP 107/54
[2017-11-17] MEDS: METOPROLOL TARTRATE 25 MG TABLET PO SCH (06:23)
[2017-11-17 06:35] VITALS: BP 121/64
[2017-11-17] MEDS: POTASSIUM CHLORIDE 20 MEQ TAB.ER.PRT PO SCH (08:10)
[2017-11-17] MEDS: SENNA/DOCUSATE TABLET PO SCH (08:10)
[2017-11-17] MEDS: ASPIRIN 81 MG TABLET EC PO SCH (08:10)
[2017-11-17] MEDS: AMIODARONE 200 MG TABLET PO SCH (08:10)
[2017-11-17] MEDS ORDERED: FUROSEMIDE 40 MG TABLET PO SCH (09:00)
[2017-11-17 09:08] LABS: INTERNATIONAL NORMALIZED RATIO 3.67 (0.93-1.1); PROTHROMBIN TIME 37.2 Seconds (9.6-11.5)
[2017-11-17] MEDS ORDERED: METO25TA35 PO (11:01)
== END 2017-11-17 13:00 | disposition home or self-care (01) | DRG 308 ==
LOC: ED 19:38 → EDIP 20:45 → 5SO 21:36 → DCLOUNGE 11-17 12:40
PROVIDERS: ADMIT Family Medicine; ATTEND Family Medicine
DX: I48.0 Paroxysmal atrial fibrillation (principal); I50.33 Acute on chronic diastolic (congestive) heart failure; I31.3 Pericardial effusion (noninflammatory); I07.1 Rheumatic tricuspid insufficiency; I34.0 Nonrheumatic mitral (valve) insufficiency; Z95.3 Presence of xenogenic heart valve; I70.8 Atherosclerosis of other arteries; Z88.8 Allergy status to other drugs, medicaments and biological substances; Z88.6 Allergy status to analgesic agent; Z91.013 Allergy to seafood; Z79.01 Long term (current) use of anticoagulants; Z79.899 Other long term (current) drug therapy; Z87.891 Personal history of nicotine dependence; Z98.51 Tubal ligation status; I35.0 Nonrheumatic aortic (valve) stenosis
CPT/HCPCS: 36415; 71045; 80053; 83735; 83880; 84100; 84443; 84484; 85025; 85610; 93005; 93306; 99285; J1940

== ENCOUNTER 2017-12-04 22:32 | Emergency (ER) | payer OTHER ==
[~2017-12-04] VITALS: Ht 165.1 cm; Wt 62.0 kg
[~2017-12-04 22:32] MED LIST changes: +METO25TA35 PO
[2017-12-04] MEDS ORDERED: SENAKOT (22:46)
[2017-12-04 23:48] LABS: BASOPHILS # (AUTO) 0.07 x10^3/uL (0-0.1); BASOPHILS % (AUTO) 1 % (0-1); EOSINOPHILS # (AUTO) 0.62 x10^3/uL (0-0.4); EOSINOPHILS % (AUTO) 8 % (1-7); LYMPHOCYTES # (AUTO) 1.32 x10^3/uL (1-3.4); LYMPHOCYTES % (AUTO) 17 % (22-44); MD NO; MEAN CORPUSCULAR HEMOGLOBIN 29.3 pg (27.0-34.8); MEAN CORPUSCULAR HGB CONC 33.1 g/dL (32.4-35.8); MEAN CORPUSCULAR VOLUME 88.4 fL (80-100); MONOCYTES # (AUTO) 0.43 x10^3/uL (0.2-0.8); MONOCYTES % (AUTO) 6 % (2-9); NEUTROPHILS # (AUTO) 5.16 x10^3/uL (1.8-6.8); NEUTROPHILS % (AUTO) 68 % (42-75); PLATELET COUNT 333 x10^3/uL (130-400); RED BLOOD COUNT 4.14 x10^6/uL (3.82-5.3); RED CELL DISTRIBUTION WIDTH 15.4 % (9.6-15.2)
[2017-12-04 23:56] LABS: INTERNATIONAL NORMALIZED RATIO 1.98 (0.93-1.1); PROTHROMBIN TIME 20.1 Seconds (9.6-11.5)
[2017-12-04 23:57] LABS: ALBUMIN 3.5 g/dL (3.4-5.0); ANION GAP 7 mmol/L (5-15); CALCIUM 9.6 mg/dL (8.5-10.1); CHLORIDE 103 mmol/L (98-107); CREATININE 1.25 mg/dL (0.55-1.02)
[2017-12-05] LABS: TROPONIN I < 0.015 ng/mL (0.000-0.045)
[2017-12-05] MEDS ORDERED: ONDANSETRON ODT 4 MG PO ONE (01:30)
[2017-12-05] MEDS ORDERED: AMIODARONE 200 MG TABLET PO ONE (01:30)
[2017-12-05 01:43] VITALS: BP 132/65
[2017-12-05] MEDS ORDERED: ONDANSETRON 2MG/ML, 2ML IVPush PRN (02:00)
== END 2017-12-05 02:04 | disposition home or self-care (01) ==
LOC: ED 23:05
DX: I10 Essential (primary) hypertension (principal); I48.91 Unspecified atrial fibrillation; Z86.73 Personal history of transient ischemic attack (TIA), and cerebral infarction without residual deficits; Z88.6 Allergy status to analgesic agent; Z88.8 Allergy status to other drugs, medicaments and biological substances
CPT/HCPCS: 36415; 80048; 82040; 84484; 85025; 85610; 93005; 99285

== ENCOUNTER → 2018-02-18 | Outpatient (CLI) | payer OTHER ==
[~2018-02-18] MED LIST changes: +SENAKOT
== END | disposition home or self-care (01) ==
LOC: CVU 10:06
PROVIDERS: ATTEND Internal Medicine Cardiovascular Disease
DX: I51.7 Cardiomegaly (principal); I70.8 Atherosclerosis of other arteries; I71.2 Thoracic aortic aneurysm, without rupture; I35.0 Nonrheumatic aortic (valve) stenosis
CPT/HCPCS: 93306; 93880